=== PATIENT | female | born 1970 | race Caucasian/White ===

== ENCOUNTER 2020-01-17 09:45 | Emergency (ER) | payer BC ==
[2020-01-17] MEDS ORDERED: SODIUM CHLORIDE 0.9% 1000ML 1,000 ML IVS ONE (09:52)
[2020-01-17] MEDS ORDERED: PROMETHAZINE HCL INJ 25 MG in SODIUM CHLORIDE 0.9% 50ML 50 ML IVPB ONE (09:52)
[2020-01-17] MEDS ORDERED: KETOROLAC TROMETHAMINE INJ 30 MG/ML VIAL IM ONE (09:52)
--- NOTE | 2020-01-17 11:33 | CT ---
EXAM DESCRIPTION: Abdomen/Pelvis w/o Contrast CLINICAL HISTORY: left flank pain COMPARISON: None. TECHNIQUE: CT of the abdomen and pelvis was performed without contrast. Multiple axial images and multiplanar reconstructions were generated. This exam was performed according to our departmental dose-optimization program, which includes automated exposure control, adjustment of the mA and/or kV according to patient size and/or use of iterative reconstruction technique. FINDINGS: Lung bases: Linear opacities in the lingula which are nonspecific but favored to represent atelectasis or scarring. Solid organs: Moderate left hydronephrosis and hydroureter with obstructing 2 mm calculus in the left ureterovesical junction. Evaluation of the solid organs is limited due to lack of IV contrast. Mild hepatic steatosis. The gallbladder, spleen, pancreas, right kidney, and adrenal glands are unremarkable. Gastrointestinal: Colonic diverticulosis without CT evidence for diverticulitis. The stomach and small intestine are unremarkable. The appendix is normal. No free fluid or free air. Vascular: Mild atherosclerotic plaque in the abdominal aorta and its major branches. Lymph nodes: No pathologically enlarged lymph nodes are present by CT size criteria. Musculoskeletal and soft tissues: No destructive osseous lesions are present. Small fat-containing umbilical hernia. Urinary bladder and pelvic organs: No additional bladder calculi. The uterus is unremarkable. IMPRESSION: 1. Obstructing 2 mm calculus in the left ureterovesical junction with moderate left hydroureteronephrosis. 2. Mild hepatic steatosis. 3. Colonic diverticulosis. 4. Other findings as above. Electronically signed by: Crescencio Saldaña MD 01/17/2020 11:31 AM CDT
[2020-01-17] MEDS ORDERED: HYDROcodone 7.5MG/APAP 325MG 1 EA TAB PO ONE (11:40)
[2020-01-17] MEDS ORDERED: TAMSULOSIN 0.4 MG CAP PO ONE (11:40)
--- NOTE | 2020-01-17 12:04 | ED.PDOC ---
History of Present Illness - General Chief Complaint: Abdominal Pain Time Seen by Provider: 01/17/20 09:50 Source: patient Exam Limitations: no limitations - History of Present Illness Initial Comments: The patient is a 49-year-old female presented emergency room secondary to left flank and abdominal pain that started acutely at around 430 this morning. She has had several episodes of nausea and vomiting. Pain is severe. It is colicky in nature. No history of any hernias or previous episodes of bowel obstructions. She reports that it time she is uncertain whether she needs to pee, poop or vomit. Timing/Duration: 4-6 hours Severity: severe Improving Factors: nothing Worsening Factors: nothing Associated Symptoms: diaphoresis, loss of appetite, malaise, nausea/vomiting Allergies/Adverse Reactions: Allergies NO KNOWN ALLERGY Allergy (Verified 01/17/20 10:39) Home Medications: Ambulatory Orders Tamsulosin HCl [Flomax] 0.4 mg PO DAILY #7 cap 01/17/20 Tramadol HCl 50 mg PO Q8HR PRN #20 tab 01/17/20 Review of Systems - Review of Systems Constitutional: States: malaise EENTM: States: no symptoms reported Respiratory: States: no symptoms reported Cardiology: States: no symptoms reported Gastrointestinal/Abdominal: States: abdominal pain, nausea, vomiting Genitourinary: States: see HPI - Increased frequency Musculoskeletal: States: back pain Skin: States: no symptoms reported Neurological: States: no symptoms reported Endocrine: States: no symptoms reported All other Systems: No Change from Baseline Past Medical History (General) - Patient Medical History Hx Cardiac Disorders: No Hx Thyroid Disease: Yes Hx Diabetes: No Hx Gastroesophageal Reflux: No Surgical History: other Family Medical History - Family History Mother Family History: Unknown Physical Exam - Physical Exam General Appearance: Alert, Obvious distress Eye Exam: bilateral normal Ears, Nose, Throat: hearing grossly normal, normal pharynx Neck: full range of motion, supple Respiratory: lungs clear, normal breath sounds, no respiratory distress, no accessory muscle use Cardiovascular/Chest: normal peripheral pulses, regular rate, rhythm, no edema Peripheral Pulses: radial,right: 2+, radial,left: 2+ Gastrointestinal/Abdominal: non tender - Morbidly obese, soft Rectal Exam: deferred Back Exam: no CVA tenderness, no vertebral tenderness Extremity: normal range of motion, non-tender, normal inspection, no pedal edema, normal capillary refill 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 Patient received a liter of IV fluids, a dose of Flomax as well as doses of pain medications and nausea medications. She does need to increase her fluid intake. Ambulation is encouraged. The patient will be written for Flomax for the next week. She can use Motrin as well as needed. No evidence of infection at this time. I do want her to follow back up with her primary care doctor next week. She will be written for tramadol for as needed use for pain control. ER warnings are given. barry arenas [phone] [facility] consulted - Results/Orders Results/Orders: Laboratory Tests 01/17/20 01/17/20 01/17/20 10:00 10:00 10:00 WBC 9.5 RBC 5.64 H Hgb 16.0 Hct 46.5 MCV 82.6 MCH 28.4 MCHC 34.4 RDW 14.8 H Plt Count 281 MPV 7.6 Absolute Neuts (auto) 7.70 H Absolute Lymphs (auto) 1.10 Absolute Monos (auto) 0.50 Absolute Eos (auto) 0.00 Absolute Basos (auto) 0.10 Neutrophils % 81.4 H Lymphocytes % 11.9 L Monocytes % 5.3 Eosinophils % 0.3 L Basophils % 1.1 PT 9.7 INR < 1.00 PTT (SP) 23.6 Sodium 138 Potassium 3.9 Chloride 104 Carbon Dioxide 24 Anion Gap 13.9 BUN 26 H Creatinine 1.05 BUN/Creatinine Ratio 24.8 H Random Glucose 139 H Serum Osmolality 282.7 Lactic Acid Calcium 9.1 Magnesium 1.8 Total Bilirubin 1.4 H AST 28 ALT 45 Alkaline Phosphatase 86 Creatine Kinase 28 CK-MB (CK-2) 0.4 Troponin I < 0.02 B-Natriuretic Peptide 43.5 Serum Total Protein 8.0 Albumin 4.3 Globulin 3.7 H Albumin/Globulin Ratio 1.2 Amylase 41 Lipase 44 TSH 1.03 Serum HCG, Qual Urine Color Urine Appearance Urine pH Ur Specific [place] Urine Protein Urine Glucose (UA) Urine Ketones Urine Blood Urine Nitrite Urine Bilirubin Urine Urobilinogen Ur Leukocyte Esterase Urine RBC Urine WBC Ur Epithelial Cells Amorphous Sediment Urine Bacteria Urine Mucus 01/17/20 01/17/20 01/17/20 10:00 10:30 10:37 WBC RBC Hgb Hct MCV MCH MCHC RDW Plt Count MPV Absolute Neuts (auto) Absolute Lymphs (auto) Absolute Monos (auto) Absolute Eos (auto) Absolute Basos (auto) Neutrophils % Lymphocytes % Monocytes % Eosinophils % Basophils % PT INR PTT (SP) Sodium Potassium Chloride Carbon Dioxide Anion Gap BUN Creatinine BUN/Creatinine Ratio Random Glucose Serum Osmolality Lactic Acid 1.1 Calcium Magnesium Total Bilirubin AST ALT Alkaline Phosphatase Creatine Kinase CK-MB (CK-2) Troponin I B-Natriuretic Peptide Serum Total Protein Albumin Globulin Albumin/Globulin Ratio Amylase Lipase TSH Serum HCG, Qual Negative Urine Color Yellow Urine Appearance Cloudy Urine pH 5.5 Ur Specific [place] 1.025 Urine Protein Trace Urine Glucose (UA) Negative Urine Ketones Negative Urine Blood Negative Urine Nitrite Negative Urine Bilirubin Negative Urine Urobilinogen 0.2 Ur Leukocyte Esterase Negative Urine RBC 0-1 Urine WBC 1-3 Ur Epithelial Cells 10-20 Amorphous Sediment 1+ Urine Bacteria Rare Urine Mucus Small CT scan abdomen pelvis shows a 2 mm stone at the left ureterovesicular junction. Diverticulosis without diverticulitis. Mild to moderate left hydroureteral and hydronephrosis .see report for details. Departure - Departure Clinical Impression: Kidney stone on left side Disposition: Discharge to Home or Self Care Condition: Fair Departure Forms: ED Discharge - Pt. Copy, Patient Portal Self Enrollment Instructions: DI for Abdominal Pain-Adult, Kidney Stones (DC) Diet: regular diet Activity: increase activity as tolerated Referrals: KATYA BUSTILLO IV, SENIOR COMPLIANCE OFFICER [Primary Care Provider] - 1-2 Weeks Prescriptions: Tramadol HCl 50 mg PO Q8HR PRN #20 tab PRN Reason: Moderate Pain Tamsulosin HCl [Flomax] 0.4 mg PO DAILY #7 cap Home Medications: Ambulatory Orders Tamsulosin HCl [Flomax] 0.4 mg PO DAILY #7 cap 01/17/20 Tramadol HCl 50 mg PO Q8HR PRN #20 tab 01/17/20 Additional Instructions: The patient is a 49-year-old female presented emergency room secondary to pain from left-sided ureterolithiasis, with a 2 mm stone nearing the bladder. Patient received a liter of IV fluids, a dose of Flomax as well as doses of pain medications and nausea medications. She does need to increase her fluid intake. Ambulation is encouraged. The patient will be written for Flomax for the next week. She can use Motrin as well as needed. No evidence of infection at this time. I do want her to follow back up with her primary care doctor next week. She will be written for tramadol for as needed use for pain control. ER warnings are given.
[2020-01-17 12:48] VITALS: BP 179/87; TEMP 98.6; O2SAT 95
== END 2020-01-17 12:29 | disposition home or self-care (01) ==
LOC: ER 09:45
DX: N13.2 Hydronephrosis with renal and ureteral calculous obstruction (principal); K57.90 Diverticulosis of intestine, part unspecified, without perforation or abscess without bleeding; R11.12 Projectile vomiting; E07.9 Disorder of thyroid, unspecified
CPT/HCPCS: 36415; 74176; 80053; 81001; 82150; 82550; 82553; 83605; 83690; 83735; 83880; 84443; 84484; 84703; 85025; 85610; 85730; A4216; J1885; J2550; J7030